=== PATIENT | female | born 1980 | race Caucasian/White ===

== ENCOUNTER 2024-01-13 16:15 | Emergency (ER) | payer OTHER ==
[~2024-01-13] VITALS: Ht 157.5 cm; Wt 50.8 kg
[2024-01-13 16:28] VITALS: BP 141/89; PULSE 94; RESP 22; TEMP 98.7; O2SAT 98
[2024-01-13] MEDS: KETOROLAC 30 MG/ML VIAL IM ONE (17:20)
[2024-01-13] MEDS ORDERED: ACET-8905 PO (17:57)
[2024-01-13 18:53] VITALS: BP 149/91; PULSE 88; RESP 20; TEMP 98.7; O2SAT 100
== END 2024-01-13 18:53 | disposition home or self-care (01) ==
LOC: MED 16:15
DX: S22.41XA Multiple fractures of ribs, right side, initial encounter for closed fracture (principal); S09.90XA Unspecified injury of head, initial encounter; Z79.899 Other long term (current) drug therapy; Z90.710 Acquired absence of both cervix and uterus; Y04.8XXA Assault by other bodily force, initial encounter; Y93.89 Activity, other specified; Y92.89 Other specified places as the place of occurrence of the external cause; Y99.8 Other external cause status
CPT/HCPCS: 70450; 71101; 96372; 99285; J1885

== ENCOUNTER 2024-02-19 01:20 | Emergency (ER) | payer OTHER ==
[~2024-02-19] VITALS: Ht 157.5 cm; Wt 50.8 kg
[~2024-02-19 01:20] MED LIST: ACET-8905 PO; HYDR-5071 PO
[2024-02-19 01:34] VITALS: BP 166/90; PULSE 91; RESP 20; TEMP 97.3; O2SAT 99
[2024-02-19] MEDS: LORazepam 1 MG TAB PO ONE (01:36)
[2024-02-19 03:00] VITALS: BP 166/90; PULSE 91; RESP 20; TEMP 97.3; O2SAT 99
== END 2024-02-19 03:00 | disposition home or self-care (01) ==
LOC: MED 01:20
DX: F41.0 Panic disorder [episodic paroxysmal anxiety] (principal); F10.90 Alcohol use, unspecified, uncomplicated; Y90.9 Presence of alcohol in blood, level not specified; Z79.899 Other long term (current) drug therapy
CPT/HCPCS: 81025; 99283